=== PATIENT | female | born 1970 | race American Indian/Alaskan Native ===

== ENCOUNTER 2021-04-11 09:56 | Emergency (ER) | payer SELFPAY ==
--- NOTE | 2021-04-11 11:28 | Emergency Department Report ---
ED General Adult HPI - General Chief complaint: Syncope Stated complaint: WEAK,SICK AT STOMACH Time Seen by Provider: 04/11/21 10:57 Source: patient Mode of arrival: Ambulatory Limitations: No Limitations - History of Present Illness Initial comments: Chief complaint: "I just feel awful. This is a healthy 50-year-old female without significant past medical history who presents with 9 days of symptoms since last Wednesday. She feels queasy. She has fatigue cough. Generalized malaise. She lives with boyfriend who has similar symptoms first. She works as a hairstylist. Boyfriend works in construction. She had Covid test today. Results will be available in 2 to 3 days. She is not vaccinated against COVID-19. She feels uncomfortable sleeping at night. -: Gradual, days(s) (9 days since last Wednesday) Consistency: constant Improves with: none Worsens with: none Associated Symptoms: cough, malaise Treatments Prior to Arrival: none - Related Data Allergies Allergy/AdvReac Type Severity Reaction Status Date / Time No Known Allergies Allergy Unverified 04/11/21 10:09 ED Review of Systems ROS: Stated complaint: WEAK,SICK AT STOMACH Other details as noted in HPI Comment: All other systems reviewed and negative Constitutional: malaise. denies: chills, fever Respiratory: cough. denies: shortness of breath Cardiovascular: denies: chest pain Gastrointestinal: denies: abdominal pain, nausea, vomiting ED Past Medical Hx - Past Medical History Previous Medical History?: No - Surgical History Past Surgical History?: No - Social History Smoking Status: Never Smoker Substance Use Type: None ED Physical Exam - General Limitations: No Limitations General appearance: alert, in no apparent distress - Head Head exam: Present: atraumatic, normocephalic - Eye Eye exam: Present: normal appearance - ENT ENT exam: Present: mucous membranes moist - Neck Neck exam: Present: normal inspection, full ROM - Respiratory Respiratory exam: Present: normal lung sounds bilaterally. Absent: respiratory distress, wheezes, rales, rhonchi - Cardiovascular Cardiovascular Exam: Present: regular rate, normal rhythm, normal heart sounds. Absent: systolic murmur, diastolic murmur, rubs, gallop - GI/Abdominal GI/Abdominal exam: Present: soft, normal bowel sounds. Absent: distended, tenderness, guarding, rebound - Extremities Exam Extremities exam: Present: normal inspection - Back Exam Back exam: Present: normal inspection - Neurological Exam Neurological exam: Present: alert, oriented X3 - Psychiatric Psychiatric exam: Present: normal affect, normal mood - Skin Skin exam: Present: warm, dry, intact, normal color. Absent: rash ED Medical Decision Making - Medical Decision Making Suspected COVID-19: Patient appears well. Given reassurance and return precautions. Critical care attestation.: If time is entered above; I have spent that time in minutes in the direct care of this critically ill patient, excluding procedure time. ED Disposition Clinical Impression: Suspected COVID-19 virus infection Disposition: HOME / SELF CARE / HOMELESS Is pt being admited?: No Does the pt Need Aspirin: No Condition: Stable Instructions: COVID-19 Referrals: ASTON LÓPEZ MD [Staff Physician] - 3-5 Days
[2021-04-11 11:47] VITALS: BP 109/75
== END 2021-04-11 11:47 | disposition home or self-care (01) ==
LOC: ED 09:56
DX: R53.83 Other fatigue (principal); R05 Cough; Z20.822 Contact with and (suspected) exposure to COVID-19
CPT/HCPCS: 82962; 99283